=== PATIENT | female | born 1945 | race Caucasian/White ===

== ENCOUNTER 2017-02-12 10:52 | Observation (INO) | payer MEDICARE, OTHER ==
[~2017-02-12] VITALS: Ht 167.6 cm; Wt 120.2 kg
[2017-02-12] MEDS ORDERED: DEMADEX20 MG PO (10:59)
[2017-02-12] MEDS ORDERED: ZYRTEC10 MG PO (11:00)
[2017-02-12] MEDS ORDERED: METOPROLOL SUC200 MG PO (11:00)
[2017-02-12] MEDS ORDERED: KLOR-CON 1010 MEQ PO (11:00)
[2017-02-12] MEDS ORDERED: EFFIENT10 MG PO (11:01)
[2017-02-12] MEDS ORDERED: CYMBALTA60 MG PO (11:04)
[2017-02-12] MEDS ORDERED: TRULICITY1.5 MG/0.5 SC (11:05)
[2017-02-12] MEDS ORDERED: BYDUREON2 MG SC (11:06)
[2017-02-12] MEDS ORDERED: VAGIFEM10 MCG VA (11:06)
[2017-02-12] MEDS ORDERED: CRESTOR5 MG PO (11:06)
[2017-02-12] MEDS ORDERED: ADLT ASA LOW81 MG PO (11:08)
[2017-02-12] MEDS ORDERED: RANEXA PO (11:08)
[2017-02-12] MEDS ORDERED: CO-ENZYME Q10100 MG PO (11:09)
[2017-02-12] MEDS ORDERED: VITAMIN D-31000 UNI1 PO (11:09)
[2017-02-12] MEDS ORDERED: OMEGA 3-6-9 COMPLEX PO (11:10)
[2017-02-12] MEDS ORDERED: CITRACAL +3 PO (11:10)
[2017-02-12] MEDS ORDERED: VITAMIN B-12500 MCG PO (11:11)
[2017-02-12] MEDS ORDERED: VITAMIN B-COMPLEX PO (11:11)
[2017-02-12] MEDS ORDERED: VITAMIN C1000 MG PO (11:12)
[2017-02-12] MEDS ORDERED: PEPCID20 MG PO (11:12)
[2017-02-12] MEDS ORDERED: PROBIOTIC1 TAB PO (11:13)
[2017-02-12] MEDS ORDERED: COLACE100 MG PO (11:13)
[2017-02-12 11:29] LABS: HEMATOCRIT 42.4 % (37.0-47.0); HEMOGLOBIN 14.1 g/dl (12.0-16.0); IMMATURE GRANULOCYTES 0.5 % (0.0-1.0); MEAN CELL VOLUME 99.8 fL CALC (80.0-100.0); MEAN CORPUSCULAR HGB 33.2 pG CALC (26.0-32.0); MEAN CORPUSCULAR HGB CONC 33.3 g/L CALC (32.0-36.0); NEUT# 6.31 thou/uL (2.00-7.15); RED BLOOD COUNT 4.25 mill/uL (4.20-5.60); RED CELL DISTRI WIDTH 13.3 % (11.5-15.5)
[2017-02-12 11:40] LABS: ALKALINE PHOSPHATASE 44 u/l (38-126); BILIRUBIN, TOTAL 1.5 mg/dL (0.0-1.4); BUN 22 mg/dL (8-23); BUN/CREATININE RATIO 21 (12-20 (CALC)); CALCIUM 9.2 mg/dL (8.4-10.2); CARBON DIOXIDE 24 mmol/l (22-30); CHLORIDE 100 mmol/l (95-108); GFR 55 ML/MIN (>=60 (CALC)); GFR FOR AFR.AMER. > 60 ML/MIN (>=60 (CALC)); GLUCOSE 194 mg/dL (82-115); SGOT/AST 46 u/l (9-36); SGPT/ALT 36 u/l (11-66); SODIUM 136 mmol/l (137-146); TOTAL PROTEIN 7.2 g/dL (6.3-8.2)
[2017-02-12 11:52] LABS: ANION GAP 18 (6-22 (CALC)); MYOGLOBIN 43 ng/mL (0 - 62); POTASSIUM 5.9 mmol/l (3.5-5.1)
[2017-02-12 14:15] LABS: URINE BILIRUBIN - DIPSTICK NEGATIVE (NEGATIVE); URINE BLOOD DIPSTICK NEGATIVE (NEGATIVE); URINE CLARITY CLEAR; URINE COLOR YELLOW; URINE GLUCOSE - DIPSTICK 100 mg/dL (NEGATIVE); URINE KETONE NEGATIVE (NEGATIVE); URINE LEUK ESTERASE NEGATIVE (NEGATIVE); URINE NITRITE - DIPSTICK NEGATIVE (Negative); URINE PH 6.5 (4.5-8.0); URINE PROTEIN - DIPSTICK NEGATIVE (NEG-TRACE); URINE SPECIFIC GRAVITY <=1.005; URINE UROBILINOGEN - DIPSTICK 0.2 E.U./dL (0.2)
[2017-02-12 14:41] VITALS: BP 132/73
[2017-02-12 19:15] VITALS: BP 108/62
[2017-02-13] VITALS: BP 101/74
[2017-02-13 04:55] VITALS: BP 102/65
[2017-02-13 07:09] LABS: CHOLESTEROL HDL RATIO 4.1 (<4.4 (CALC))
[2017-02-13 08:19] LABS: HEMATOCRIT 42.6 % (37.0-47.0); HEMOGLOBIN 14.3 g/dl (12.0-16.0); IMMATURE GRANULOCYTES 0.4 % (0.0-1.0); MEAN CELL VOLUME 98.6 fL CALC (80.0-100.0); MEAN CORPUSCULAR HGB 33.1 pG CALC (26.0-32.0); MEAN CORPUSCULAR HGB CONC 33.6 g/L CALC (32.0-36.0); NEUT# 6.21 thou/uL (2.00-7.15); RED BLOOD COUNT 4.32 mill/uL (4.20-5.60); RED CELL DISTRI WIDTH 13.3 % (11.5-15.5)
[2017-02-13 08:25] LABS: ALBUMIN 3.8 g/dL (3.2-5.0); BILIRUBIN, TOTAL 1.3 mg/dL (0.0-1.4); CALCIUM 9.3 mg/dL (8.4-10.2); CREATININE 1.1 mg/dL (0.5-1.0); POTASSIUM 4.8 mmol/l (3.5-5.1); TOTAL PROTEIN 6.6 g/dL (6.3-8.2)
[2017-02-13 09:05] VITALS: BP 116/72
== END 2017-02-13 10:40 | disposition home or self-care (01) ==
LOC: ENPENDDIS → ED 10:52 → ED-I 12:00 → ED 13:32 → MS2 13:33
PROVIDERS: Emergency Medicine; ADMIT Internal Medicine Geriatric Medicine; ATTEND Internal Medicine Geriatric Medicine
DX: R07.9 Chest pain, unspecified (principal); I25.10 Atherosclerotic heart disease of native coronary artery without angina pectoris; E11.9 Type 2 diabetes mellitus without complications; I10 Essential (primary) hypertension; I48.91 Unspecified atrial fibrillation; E87.5 Hyperkalemia; E78.5 Hyperlipidemia, unspecified; M19.90 Unspecified osteoarthritis, unspecified site; K21.9 Gastro-esophageal reflux disease without esophagitis; K27.9 Peptic ulcer, site unspecified, unspecified as acute or chronic, without hemorrhage or perforation; F32.9 Major depressive disorder, single episode, unspecified; F41.9 Anxiety disorder, unspecified; Z95.5 Presence of coronary angioplasty implant and graft

== ENCOUNTER 2021-01-12 13:18 | Emergency (ER) | payer MEDICARE, OTHER ==
[~2021-01-12] VITALS: Ht 167.6 cm; Wt 95.0 kg
[~2021-01-12 13:18] MED LIST: ADLT ASA LOW81 MG PO; BYDUREON2 MG SC; CITRACAL +3 PO; CO-ENZYME Q10100 MG PO; COLACE100 MG PO; CRESTOR5 MG PO; CYMBALTA60 MG PO; DEMADEX20 MG PO; EFFIENT10 MG PO; KLOR-CON 1010 MEQ PO; METOPROLOL SUC200 MG PO; OMEGA 3-6-9 COMPLEX PO; PEPCID20 MG PO; PROBIOTIC1 TAB PO; RANEXA PO; TRULICITY1.5 MG/0.5 SC; VAGIFEM10 MCG VA; VITAMIN B-12500 MCG PO; VITAMIN B-COMPLEX PO; VITAMIN C1000 MG PO; VITAMIN D-31000 UNI1 PO; ZYRTEC10 MG PO
[2021-01-12] MEDS ORDERED: ATENOLOL25 MG PO (13:34)
[2021-01-12] MEDS ORDERED: OZEMPIC2 MG/1.5 M IJ (13:36)
[2021-01-12 15:15] VITALS: BP 122/76
== END 2021-01-12 15:15 | disposition home or self-care (01) ==
LOC: ED 13:18
PROC: 0HQGXZZ Repair Left Hand Skin, External Approach (ICD-10-PCS; principal; 2021-01-12)
DX: S61.012A Laceration without foreign body of left thumb without damage to nail, initial encounter (principal); I10 Essential (primary) hypertension; E11.9 Type 2 diabetes mellitus without complications; W26.0XXA Contact with knife, initial encounter; Y93.89 Activity, other specified; Y92.009 Unspecified place in unspecified non-institutional (private) residence as the place of occurrence of the external cause

== ENCOUNTER 2024-03-05 10:46 | Observation (INO) | payer MEDICARE, OTHER ==
[2024-03-05] VITALS (37 sets, daily range): BP systolic 101–162; BP diastolic 58–91
[~2024-03-05] VITALS: Ht 167.6 cm; Wt 92.5 kg
[~2024-03-05 10:46] MED LIST changes: +ATENOLOL25 MG PO; +OZEMPIC2 MG/1.5 M IJ
--- NOTE | 2024-03-05 10:50 | NUR ---
PT TO ER ROOM 6 VIA WHEELCHAIR FROM [facility]. MD AT BEDSIDE FRO ASSESSMENT.
[2024-03-05] MEDS ORDERED: DILTIAZEM HCL 25 MG/5 ML SDV IV ONE (11:00)
[2024-03-05] MEDS ORDERED: ADENOSINE 6MG (3 MG/ML) SYR IV ONE (11:00)
[2024-03-05] MEDS ORDERED: SODIUM CHLORIDE 0.9% 1,000 ML IV ONE ×2 (11:07→11:10)
[2024-03-05 11:29] LABS: BASO% 0.1 % (0-3); EOS% 1.7 % (0-8); IMMATURE GRANULOCYTES 0.1 % (0.0-5.0); LYMPH% 25.5 % (15-41); MEAN CORPUSCULAR HGB 33.3 pG CALC (26.0-32.0); MEAN CORPUSCULAR HGB CONC 31.7 g/dL CAL (32.0-36.0); MONO% 5.5 % (2-13); NEUT# 5.24 thou/uL (2.00-7.15); NEUT% 67.1 % (42-76); RED BLOOD COUNT 4.21 mill/uL (4.20-5.60); RED CELL DISTRI WIDTH 13.6 % (11.5-15.5)
[2024-03-05 11:30] LABS: HEMATOCRIT 44.2 % (37.0-47.0)
[2024-03-05] MEDS ORDERED: TOPROL XL25 M1 PO (11:39)
[2024-03-05] MEDS ORDERED: LYRICA50 MG PO (11:41)
[2024-03-05] MEDS ORDERED: TYLENOL500 MG PO (11:42)
[2024-03-05] MEDS ORDERED: TRULICITY1.5 MG/0.5 SC (11:42)
[2024-03-05] MEDS ORDERED: ALPHA LIPOIC600 MG PO (11:43)
[2024-03-05] MEDS ORDERED: VITAMIN C500 M1 PO (11:44)
[2024-03-05] MEDS ORDERED: TUMMERIC PO (11:44)
[2024-03-05 11:45] LABS: ALBUMIN 4.5 g/dL (3.2-5.0); ALKALINE PHOSPHATASE 47 u/l (38-126); ANION GAP 10 (6-22 (CALC)); BUN 17 mg/dL (8-23); BUN/CREATININE RATIO 19 (12-20 (CALC)); CARBON DIOXIDE 27 mmol/l (22-30); CHLORIDE 109 mmol/l (95-108); CREATININE 0.9 mg/dL (0.5-1.0); ESTIMATED GFR 66 ML/MIN (>=90 (CALC)); POTASSIUM 4.7 mmol/l (3.5-5.1); SGOT/AST 36 u/l (9-36); SODIUM 140 mmol/l (137-146); TOTAL PROTEIN 7.7 g/dL (6.3-8.2)
[2024-03-05] MEDS ORDERED: ZINC50 MG PO (11:45)
[2024-03-05] MEDS ORDERED: SUPER BIOTIN5000 MCG PO (11:45)
[2024-03-05 11:46] LABS: BILIRUBIN, TOTAL 1.6 mg/dL (0.02-1.3)
[2024-03-05] MEDS ORDERED: FOLIC ACID1 MG PO (11:46)
[2024-03-05] MEDS ORDERED: [UNRECOGNIZED DRUG - CODE] PO (11:47)
[2024-03-05] MEDS ORDERED: CINNAMON500 MG PO (11:47)
--- NOTE | 2024-03-05 11:56 | NUR ---
PT AMBULATE TO ER BATHROOM WITH STEADY GAIT. NO DISTRESS NOTED.
[2024-03-05 12:15] LABS: TSH, 3RD GENERATION < 0.02 uIU/mL (0.47 - 4.68)
--- NOTE | 2024-03-05 12:22 | NUR ---
PT RESTING IN BED. VSS. NO DISTRESS NOTED.
[2024-03-05 13:09] LABS: URINE BILIRUBIN - DIPSTICK Negative (NEGATIVE); URINE BLOOD DIPSTICK Negative (NEGATIVE); URINE GLUCOSE - DIPSTICK Negative (NEGATIVE); URINE KETONE Trace mg/dL (NEGATIVE); URINE LEUK ESTERASE Negative (NEGATIVE); URINE NITRITE - DIPSTICK Negative (Negative); URINE PH 5.5 (4.5-8.0); URINE PROTEIN - DIPSTICK Negative (NEG-TRACE); URINE UROBILINOGEN - DIPSTICK 0.2 E.U./dL (0.2)
[2024-03-05 13:17] LABS: URINE COLOR Yellow
--- NOTE | 2024-03-05 13:44 | NUR ---
MULTIPLE ATTEMPTS HAVE BEEN MADE TO OBTAIN AN IV. ALL IV OBTAINED HAVE EITHER BLOWN AND/OR INFILTRATED. PT WAS STUCK A TOTAL OF 4 TIMES BY THIS NURSE. CHARGE NURSE IS NOTIFED AND WILL ATTEMPT PER PTS REQUEST. PT REPORTS WANTING TO SAY AWAY FROM CENTRAL LINE IF POSSIBLE.
--- NOTE | 2024-03-05 14:12 | NUR ---
WARM COMPRESS PLACED ON PATIENTS INFILTRATED IV SITE. PT TOLERATE WELL.
[2024-03-05] MEDS ORDERED: MAGNESIUM HYDROXIDE 30 ML UDC PO PRN (14:25)
[2024-03-05] MEDS ORDERED: SODIUM CHLORIDE 0.9% 1,000 ML IV PRN (14:25)
[2024-03-05] MEDS ORDERED: ACETAMINOPHEN 325 MG/TAB PO PRN (14:25)
[2024-03-05] MEDS ORDERED: hydrALAZINE HCL 20 MG/ML VIAL(1 ML) IV PRN (15:00)
--- NOTE | 2024-03-05 15:19 | NUR ---
PT RESTING IN BED. VSS. NO DISTRESS NOTED. IV HYDRATION INFUSING.
[2024-03-05] MEDS ORDERED: METOPROLOL SUCCINATE 25 MG/TAB-TOPROL XL PO SCH ×2 (15:30→21:00)
--- NOTE | 2024-03-05 16:05 | NUR ---
PT REPORTS SHE TAKES HER TOPROLO @2100 AND WANTS IT SCHEDULED FOR THEN. PHARMACY IS CALLED TO GET TIME CHANGED.
--- NOTE | 2024-03-05 16:10 | NUR ---
REPORT RECEIVED OVER THE PHONE FROM GEORGETTE VÁZQUEZ.
--- NOTE | 2024-03-05 16:15 | NUR ---
PT REPORT CALLED AND GIVEN TO NURSE IN ICU.
--- NOTE | 2024-03-05 16:45 | NUR ---
PATIENT ARRIVED VIA WHEEL CHAIR. PATIENT AMBULATED FROM WHEEL CHAIR TO BED STAND BY ASSIST. PATIENT AXO X 4, LUNGS CLEAR, ON ROOM AIR, NO COUGH OR SOB NOTED. PATIENT ADMITTED DUE TO ELEVATED HR 140S FOR APPROX 45 MINUTES BUT CONVERTED TO SR IN ER WITHOUT INTERVENTION. PAATIENT IS CURRENTY 70S-80S HR SR. BOWEL SOUNDS ACTIVE, ABDOMEN SOFT NONTENDER, PATIENT REPORT LAST BM 03/04/24 HAS NOT VOIDED SINCE ARRIVAL TO UNIT. PULSES STRONG IN ALL EXTEMITIES. SKIN WDI. TRACE EDEMA BILATERAL ANKLES. AFEBRILE. PATIENT DENIES ANY PAIN. PATIENT ASSISTED TO SIT AT EDGE OF BED TO EAT DINNER. EDUCATED ON FALL RISK AND INSTRUCTED TO NOT GET OUT OF BED WITHOUT ASSISTENCE. CALL LIGHT IN REACH. VSS.
[2024-03-05] MEDS ORDERED: INSULIN LISPRO 100 UNITS/ML ML SC SCH (17:00)
--- NOTE | 2024-03-05 18:06 | NUR ---
NO CHANGES TO PATIENT STATUS. SITTING IN BED TALKING ON THE PHONE. VSS.
--- NOTE | 2024-03-05 19:30 | NUR ---
Report received from dayshift nurse. Patient is resting in bed, denies any pain. Patient ambulated to bathroom independently with no issues. On room air, IV fluids running as ordered. VS WNL, NSR on tele monitor. All needs addressed, call light within reach, bed alarm on.
[2024-03-05] MEDS ORDERED: ENOXAPARIN SODIUM 40 MG/0.4 ML SYR SC SCH (21:00)
[2024-03-06] VITALS (12 sets, daily range): BP systolic 121–144; BP diastolic 48–105
--- NOTE | 2024-03-06 | NUR ---
Patient is resting in bed, ambulated to restroom independently. On room air, IV fluids running as ordered. VS WNL, NSR on tele monitor. All needs addressed, call light and belongings within reach.
--- NOTE | 2024-03-06 04:00 | NUR ---
Patient is sleeping, ambulated to restroom independently. On room air, IV fluids running as ordered. VS WNL, NSR on tele monitor. All needs addressed, call light and belongings within reach.
--- NOTE | 2024-03-06 05:30 | NUR ---
Patient is up sitting in recliner chair per her request. Call light within reach.
[2024-03-06 05:41] LABS: BASO% 0.2 % (0-3); EOS% 3.1 % (0-8); HEMATOCRIT 39.6 % (37.0-47.0); HEMOGLOBIN 12.8 g/dl (12.0-16.0); LYMPH% 46.2 % (15-41); MEAN CELL VOLUME 103.9 fL CALC (80.0-100.0); MEAN CORPUSCULAR HGB 33.6 pG CALC (26.0-32.0); MEAN CORPUSCULAR HGB CONC 32.3 g/dL CAL (32.0-36.0); MONO% 7.9 % (2-13); NEUT# 2.33 thou/uL (2.00-7.15); NEUT% 42.6 % (42-76); RED BLOOD COUNT 3.81 mill/uL (4.20-5.60); RED CELL DISTRI WIDTH 13.5 % (11.5-15.5)
[2024-03-06 05:49] LABS: BILIRUBIN, TOTAL 1.2 mg/dL (0.02-1.3); CHOLESTEROL HDL RATIO 2.4 (<4.4 (CALC)); CREATININE 0.7 mg/dL (0.5-1.0); MAGNESIUM 1.9 mg/dL (1.6-2.3); POTASSIUM 3.9 mmol/l (3.5-5.1)
[2024-03-06 06:05] LABS: ALBUMIN 3.4 g/dL (3.2-5.0)
--- NOTE | 2024-03-06 07:30 | NUR ---
REPORT RECEIVED FROM NIGHT RN. CONY X 4. LUNGS CLEAR, ON ROOM AIR, NO COUGH, NO SOB. HEART SOUNDS S1S2, NSR. PULSES STRONG IN ALL EXTREMITIES. TEMP 97.5. SKIN WDI. BOWEL SOUNDS ACTIVE, ABDOMENT SOFT, NONDISTENDED. PATIENT SITTING UP IN CHAIR, DENIES ANY PAIN. VSS.
--- NOTE | 2024-03-06 08:17 | NUR ---
DR. HO AT BEDSIDE TO ASSESS PT. LIKELY TO BE DISCHARGED TODAY.
[2024-03-06] MEDS ORDERED: TOPROL XL25 M1 PO (08:29)
[2024-03-06] MEDS ORDERED: ASPIRIN 81 MG/TAB PO SCH (09:00)
[2024-03-06] MEDS ORDERED: PREGABALIN 50 MG/CAP PO SCH (09:00)
[2024-03-06] MEDS ORDERED: METOPROLOL SUCCINATE 25 MG/TAB-TOPROL XL PO SCH (09:30)
--- NOTE | 2024-03-06 10:50 | NUR ---
DISCHARD EDUCATION COMPLETED WITH PATIENT. ALL QUESTIONS ANSWERED. PATIENT'S SPOUSE AT BEDSIDE. ALL BELONGINGS GATHERED AND SENT WITH PATIENT. IV REMOVED. PATIENT IN GOOD CONDITION. TAKEN TO ENTRENCE BY WHEELCHAIR.
== END 2024-03-06 10:50 | disposition home or self-care (01) ==
LOC: ED 10:46 → ED-I 14:00 → ED 14:20 → ICU 14:21 → MS2 14:21 → ICU 14:22
PROVIDERS: Family Medicine; ADMIT Student in an Organized Health Care Education/Training Program; ATTEND Student in an Organized Health Care Education/Training Program
DX: I49.3 Ventricular premature depolarization (principal); R00.0 Tachycardia, unspecified; I10 Essential (primary) hypertension; E11.9 Type 2 diabetes mellitus without complications; I25.10 Atherosclerotic heart disease of native coronary artery without angina pectoris; Z95.5 Presence of coronary angioplasty implant and graft; Z98.84 Bariatric surgery status; E66.9 Obesity, unspecified; Z79.85 Long-term (current) use of injectable non-insulin antidiabetic drugs
CPT/HCPCS: J1650